=== PATIENT | female | born 1960 ===

== ENCOUNTER 2021-10-30 05:45 | Inpatient (IN) ==
[2021-10-30] MEDS ORDERED: Buffered Lidocaine 1% SYRIN 1 ml INTRADERM ONE (06:00)
[2021-10-30] MEDS ORDERED: Lactated Ringers 1000 ml BAG 1,000 ML IV SCH ×2 (06:00→13:00)
[2021-10-30] MEDS ORDERED: ceFAZolin 2 GM PREMIX 2 GM/50 ML BAG ONE (06:50)
[2021-10-30] MEDS ORDERED: Bupivacaine 0.5% SDV PF 30ML VIAL ONE (06:52)
[2021-10-30] MEDS ORDERED: Lidocaine 1% w EPI 1:100,000 MDV 20 ML VIAL ONE (06:52)
[2021-10-30] MEDS ORDERED: Midazolam 2 mg/2 ml VIAL 1 mg/ml 2 ml VIAL (2 mg) ONE (07:12)
[2021-10-30] MEDS ORDERED: fentaNYL 100 mcg/2 ml 50 MCG/ML VIAL ONE ×2 (07:12→10:10)
[2021-10-30] MEDS ORDERED: Rocuronium 50 mg VIAL 10 mg/ml 5 ml VIAL (50 mg) ONE ×2 (07:12→10:00)
[2021-10-30] MEDS ORDERED: Propofol 10 MG/ML 20 ML BTL ONE (07:14)
[2021-10-30] MEDS ORDERED: Ondansetron 4 mg VIAL 2 MG/ML 2 ml VIAL ONE ×2 (07:14→11:22)
[2021-10-30] MEDS ORDERED: Dexamethasone IV 4 MG/ML VIAL 1 ml VIAL ONE (07:14)
[2021-10-30] MEDS ORDERED: Lidocaine 2% PF 5 ML VIAL ONE (07:14)
[2021-10-30] MEDS ORDERED: Lidocaine 1% MPF 5 ML VIAL ONE (07:48)
[2021-10-30] MEDS ORDERED: ROPIVACAINE 5 MG/ML 30 ML BTL (0.5%) ONE (07:48)
[2021-10-30 07:59] LABS: Magnesium 1.7 mg/dL (1.9-2.7); Phosphorus 4.3 mg/dL (2.5-5.0); Potassium 4.5 mmol/L (3.5-5.0); eGFR CKD-EPI 25.3 (>60)
[2021-10-30] MEDS ORDERED: Acetaminophen IV 1 GM/100ML 100 ML IV PRN (09:03)
[2021-10-30] MEDS ORDERED: Naloxone 0.4 mg VIAL 0.4 mg/ml 1 ml VIAL IV PRN (09:03)
[2021-10-30] MEDS ORDERED: DiMENhydriNATE IV 50 mg/ml 1 ml VIAL IV PUSH PRN (09:03)
[2021-10-30] MEDS ORDERED: Prochlorperazine 5 mg/ml 2 ml VIAL (10 mg) IV PRN (09:03)
[2021-10-30] MEDS ORDERED: Ondansetron 4 mg VIAL 2 MG/ML 2 ml VIAL IV PRN (09:03)
[2021-10-30] MEDS ORDERED: fentaNYL 100 mcg/2 ml 50 MCG/ML VIAL IV PRN (09:03)
[2021-10-30] MEDS ORDERED: HYDROmorphone 1 MG/1 ML SYRINGE IV PRN (09:03)
[2021-10-30] MEDS ORDERED: Vancomycin 1,000 MG VIAL ONE (09:41)
[2021-10-30] MEDS ORDERED: oxyCODONE/Acetamin 5/325 mg TAB PO PRN ×2 (12:35)
[2021-10-30] MEDS ORDERED: diPHENhydraMINE 25 mg TAB PO PRN (12:35)
[2021-10-30 13:28] LABS: Hematocrit 24 % (35-47); Hemoglobin 7.9 g/dL (12.0-16.0); Mean Corpuscular HGB Conc 33 g/dL (31-36); Mean Corpuscular Hemoglobin 33 pg (27-31); Mean Corpuscular Volume 101 fL (80-97); Mean Platelet Volume 7.7 fL (7.4-10.4); Platelet Count 437 10^3/uL (150-450); Red Blood Count 2.38 10^6 /uL (3.70-4.87); Red Cell Distribution Width 15 % (10-15); White Blood Count 17.6 10^3/uL (3.5-10.8)
[2021-10-30 13:44] LABS: ALT 12 U/L (7-52); AST 15 U/L (13-39); Albumin 2.4 g/dL (3.2-5.2); Albumin/Globulin Ratio 0.7 (1-3); Alkaline Phosphatase 130 U/L (35-149); Blood Urea Nitrogen 22 mg/dL (6-24); CO2 Carbon Dioxide 17 mmol/L (22-32); Chloride 100 mmol/L (101-111); Globulin 3.3 g/dL (2-4); Glucose 118 mg/dL (70-100); Magnesium 1.9 mg/dL (1.9-2.7); Phosphorus 5.6 mg/dL (2.5-5.0); Sodium 125 mmol/L (135-145); Total Protein 5.7 g/dL (6.4-8.9); eGFR CKD-EPI 23.7 (>60)
[2021-10-30 13:47] LABS: Anion Gap 8 mmol/L (2-11); Potassium 5.6 mmol/L (3.5-5.0)
[2021-10-30] MEDS ORDERED: Thiamine 100 MG/ML 2 ml VIAL 100 MG, Folic Acid IV 1 MG, Multiple Vitamin IV ADULT 10 M... IV ONE (14:25)
[2021-10-30 15:51] LABS: Folate 15.27 ng/mL (5.90-24.80)
[2021-10-30 15:52] LABS: Vitamin B12 > 1450 pg/mL (180-914)
[2021-10-30] MEDS: ceFAZolin 2 GM in NS PREMIX 2 GM/100 ML BAG IVPB SCH (18:04)
[2021-10-30] MEDS: NFT: Mirabegron 25 mg ER TAB (NF) PO SCH (20:39)
[2021-10-30] MEDS ORDERED: Potassium Chlor 10 meq TAB PO SCH (21:00)
[2021-10-31] MEDS: ceFAZolin 2 GM in NS PREMIX 2 GM/100 ML BAG IVPB SCH ×2 (02:58→09:51)
[2021-10-31 05:12] LABS: Hematocrit 20 % (35-47); Hemoglobin 6.7 g/dL (12.0-16.0); Mean Corpuscular HGB Conc 33 g/dL (31-36); Mean Corpuscular Hemoglobin 33 pg (27-31); Mean Corpuscular Volume 100 fL (80-97); Mean Platelet Volume 7.4 fL (7.4-10.4); Platelet Count 427 10^3/uL (150-450); Red Blood Count 2.03 10^6 /uL (3.70-4.87); Red Cell Distribution Width 15 % (10-15); White Blood Count 11.3 10^3/uL (3.5-10.8)
[2021-10-31 05:41] LABS: Albumin 2.3 g/dL (3.2-5.2); Albumin/Globulin Ratio 0.8 (1-3); Calcium 7.8 mg/dL (8.6-10.3); Magnesium 1.8 mg/dL (1.9-2.7); Potassium 4.6 mmol/L (3.5-5.0); Total Bilirubin 0.3 mg/dL (0.2-1.0); Total Protein 5.3 g/dL (6.4-8.9); eGFR CKD-EPI 24.7 (>60)
[2021-10-31 05:52] LABS: ABS Lymphocytes 0.9 10^3/ul (1.0-4.8); ABS Monocytes 0.6 10^3/ul (0-0.8); ABS Neutrophils 9.8 10^3/ul (1.5-7.7); Eosinophil % 0.2 %; Lymphocyte % 7.5 %
[2021-10-31] MEDS ORDERED: Magnesium Sulfate 2 gm BAG 2 GM/50 ML BAG IVPB ONE (09:00)
[2021-10-31] MEDS: oxyCODONE/Acetamin 5/325 mg TAB PO PRN ×2 (09:51→21:07)
[2021-10-31] MEDS: CALCIUM PO SCH (09:52)
[2021-10-31] MEDS: MAGNESIUM PO SCH (09:52)
[2021-10-31] MEDS: NFT: Mirabegron 25 mg ER TAB (NF) PO SCH (21:07)
[2021-10-31 21:26] LABS: Hematocrit 29 % (35-47); Hemoglobin 9.5 g/dL (12.0-16.0)
[2021-11-01 05:56] LABS: ABS Basophils 0.1 10^3/ul (0-0.2); ABS Eosinophils 0.1 10^3/ul (0-0.6); ABS Lymphocytes 0.8 10^3/ul (1.0-4.8); ABS Monocytes 0.6 10^3/ul (0-0.8); ABS Neutrophils 9.9 10^3/ul (1.5-7.7); Eosinophil % 1.2 %; Hematocrit 24 % (35-47); Lymphocyte % 6.9 %; Mean Corpuscular HGB Conc 34 g/dL (31-36); Mean Corpuscular Hemoglobin 33 pg (27-31); Mean Corpuscular Volume 96 fL (80-97); Mean Platelet Volume 7.4 fL (7.4-10.4); Platelet Count 480 10^3/uL (150-450); Red Blood Count 2.48 10^6 /uL (3.70-4.87); Red Cell Distribution Width 16 % (10-15); White Blood Count 11.4 10^3/uL (3.5-10.8)
[2021-11-01 06:11] LABS: Calcium 7.8 mg/dL (8.6-10.3); Magnesium 2.3 mg/dL (1.9-2.7); Potassium 4.5 mmol/L (3.5-5.0); eGFR CKD-EPI 23.4 (>60)
[2021-11-01] MEDS: CALCIUM PO SCH (08:42)
[2021-11-01] MEDS: MAGNESIUM PO SCH (08:42)
[2021-11-01 08:44] LABS: Osmolality Serum 268 mOsm/kg (275-295)
[2021-11-01] MEDS: oxyCODONE/Acetamin 5/325 mg TAB PO PRN ×2 (09:23→21:42)
[2021-11-01 16:26] LABS: Urine Osmo 135 mOsm/kg (150-1150)
[2021-11-01] MEDS: NFT: Mirabegron 25 mg ER TAB (NF) PO SCH (21:43)
[2021-11-02 00:08] LABS: Urine Appearance Cloudy; Urine Bilirubin Negative (Negative); Urine Blood 2+ (Negative); Urine Color Straw; Urine Glucose Negative (Negative); Urine Ketones Negative (Negative); Urine Nitrite Negative (Negative); Urine Protein Negative (Negative); Urine Specific Gravity 1.004 (1.002-1.030); Urine Urobilinogen Negative (Negative)
[2021-11-02 00:10] LABS: Urine Bacteria 1+ (Absent); Urine Red Blood Cell Trace(0-2/hpf) (Absent); Urine Squamous Epithelial Cell Present (Absent); Urine White Blood Cell 2+(11-20/hpf) (Absent)
[2021-11-02] MEDS: oxyCODONE/Acetamin 5/325 mg TAB PO PRN ×3 (05:45→21:21)
[2021-11-02 06:17] LABS: ABS Basophils 0.1 10^3/ul (0-0.2); ABS Eosinophils 0.1 10^3/ul (0-0.6); ABS Monocytes 0.6 10^3/ul (0-0.8); ABS Neutrophils 9.3 10^3/ul (1.5-7.7); Eosinophil % 1.2 %; Hematocrit 23 % (35-47); Lymphocyte % 8.6 %; Mean Corpuscular HGB Conc 34 g/dL (31-36); Mean Corpuscular Hemoglobin 33 pg (27-31); Mean Corpuscular Volume 97 fL (80-97); Mean Platelet Volume 7.3 fL (7.4-10.4); Platelet Count 584 10^3/uL (150-450); Red Blood Count 2.41 10^6 /uL (3.70-4.87); Red Cell Distribution Width 16 % (10-15); White Blood Count 11.1 10^3/uL (3.5-10.8)
[2021-11-02 06:46] LABS: Calcium 8.2 mg/dL (8.6-10.3); Potassium 4.4 mmol/L (3.5-5.0); eGFR CKD-EPI 26.3 (>60)
[2021-11-02 07:00] LABS: TSH Ultra Thyroid Stim Horm 2.97 mcIU/mL (0.34-5.60)
[2021-11-02] MEDS: CALCIUM PO SCH (08:27)
[2021-11-02] MEDS: MAGNESIUM PO SCH (08:27)
[2021-11-02] MEDS ORDERED: Nitrofurantoin (monohydrate/macrocrystals) 100 mg CAP PO SCH (09:00)
[2021-11-02] MEDS: NFT: Mirabegron 25 mg ER TAB (NF) PO SCH (21:22)
[2021-11-03] MEDS: oxyCODONE/Acetamin 5/325 mg TAB PO PRN ×2 (02:27→08:20)
[2021-11-03 05:28] LABS: Hematocrit 21 % (35-47); Hemoglobin 7.5 g/dL (12.0-16.0); Mean Corpuscular HGB Conc 35 g/dL (31-36); Mean Corpuscular Hemoglobin 34 pg (27-31); Mean Corpuscular Volume 96 fL (80-97); Mean Platelet Volume 6.8 fL (7.4-10.4); Platelet Count 646 10^3/uL (150-450); Red Blood Count 2.22 10^6 /uL (3.70-4.87); Red Cell Distribution Width 16 % (10-15); White Blood Count 10.1 10^3/uL (3.5-10.8)
[2021-11-03 05:31] LABS: ABS Basophils 0.1 10^3/ul (0-0.2); ABS Eosinophils 0.2 10^3/ul (0-0.6); ABS Monocytes 0.6 10^3/ul (0-0.8); ABS Neutrophils 8.1 10^3/ul (1.5-7.7); Eosinophil % 1.9 %
[2021-11-03 05:46] LABS: Magnesium 1.9 mg/dL (1.9-2.7); Potassium 4.5 mmol/L (3.5-5.0)
[2021-11-03] MEDS: CALCIUM PO SCH (08:19)
[2021-11-03] MEDS: MAGNESIUM PO SCH (08:19)
[2021-11-03] MEDS ORDERED: Magnesium Hydroxide LIQ 30 ML UDC PO PRN (10:40)
[2021-11-03 11:22] VITALS: BP 124/73
== END 2021-11-03 13:30 | disposition home health service (06) | DRG 315 ==
LOC: SSU 05:45 → OR 05:45
PROVIDERS: ADMIT Orthopaedic Surgery Sports Medicine; ATTEND Orthopaedic Surgery Sports Medicine